=== PATIENT | male | born 1955 | race Caucasian/White ===

== ENCOUNTER 2022-07-21 09:25 | Inpatient (IN) | payer BC, OTHER ==
[2022-07-21] VITALS (11 sets, daily range): BP systolic 91–140; BP diastolic 44–91
[~2022-07-21] VITALS: Ht 165.1 cm; Wt 72.1 kg
[~2022-07-21 09:25] MED LIST: CLON0.1T16 PO; CLON0.5T PO; FOLI1TAB19 PO; LISI2.5T12 PO; OLAN2.5T1 PO; PROM25TA85 PO
--- NOTE | 2022-07-21 09:25 | NUR ---
PT PLACED TO [place] [id number]. RT AT BS. MD AT BS. COMFORT MEASURES AND SUPPORTIVE CARE INITIATED.
--- NOTE | 2022-07-21 09:25 | NUR ---
IV ESTABLISHED. LAB DRAWN. RT AT BS. PT ON BIPAP PER RT SETTINGS.
[2022-07-21] MEDS ORDERED: ALBUTEROL 0.083% 2.5 MG/3 ML NEBU INH ONE ×3 (09:34→12:15)
[2022-07-21] MEDS ORDERED: IPRATROPIUM 0.02% 0.5 MG/2.5 ML NEBU INH ONE ×2 (09:34→09:35)
[2022-07-21] MEDS ORDERED: MAG SULF 2000 MG/WATER PREMIX 50 ML IV ONE (09:35)
[2022-07-21] MEDS ORDERED: methylPREDNISolone SS 125 MG/2 ML VIAL IVP ONE (09:35)
--- NOTE | 2022-07-21 09:40 | NUR ---
PATIENT PLACED ON BIPAP 10/5, RATE 20, +5, 100% FIO2 PER MD MISHRA. ALARMS ARE SET AND AUDIBLE TO ENVIRONMENT, WILL CONTINUE TO MONITOR PATIENT.
[2022-07-21] MEDS ORDERED: PIPERACILLIN/TAZOBACTAM 3.375 GM in DEXTROSE 5% 50 ML IV ONE (09:50)
[2022-07-21] MEDS ORDERED: NACL 0.9% 1,000 ML IV ONE ×2 (09:50→11:20)
[2022-07-21] MEDS ORDERED: PIPERACILLIN/TAZOBACTAM 3.375 GM VIAL IV ONE (09:57)
[2022-07-21] MEDS ORDERED: LORazepam 2 MG/ML VIAL ONE (10:09)
[2022-07-21] MEDS ORDERED: LORazepam 2 MG/ML VIAL IVP ONE ×2 (10:10→23:20)
--- NOTE | 2022-07-21 10:20 | NUR ---
pt c/o anxiety, attempting to remove mask, medicated with ativan ivp per order. family at bedside.
[2022-07-21 10:25] LABS: ALBUMIN 2.3 g/dL (3.4-5.0); ANION GAP 6.6 (8-16); CARBON DIOXIDE 35.2 mmol/L (21-32); CREATININE 0.7 mg/dL (0.6-1.3); POTASSIUM 4.8 mmol/L (3.5-5.1); TOTAL BILIRUBIN 0.5 mg/dL (0.0-1.0)
[2022-07-21 10:28] LABS: BASOPHILS % (AUTO) 0.1 % (0.0-2.0); EOSINOPHILS % (AUTO) 0.1 % (0.0-4.0); HEMATOCRIT 33.1 % (36-52); HEMOGLOBIN 11.2 g/dL (12.0-18.0); LYMPHOCYTES # (AUTO) 0.9 K/uL (2.0-11.5); MEAN CORPUSCULAR HEMOGLOBIN 29 pg (27-31); MEAN CORPUSCULAR HGB CONC 34 g/dL (33-37); MONOCYTES # (AUTO) 2.5 K/uL (0.8-1.0); MONOCYTES % (AUTO) 10.8 % (1.7-9.3); NEUTROPHILS # (AUTO) 19.5 K/uL (1.8-7.7); PLATELET COUNT (AUTO) 551 K/uL (140-450); RED BLOOD CELL COUNT(AUTO) 3.85 MIL/uL (4.20-6.10); RED CELL DISTRIBUTION WIDTH 14.4 % (11.6-13.7); WHITE BLOOD COUNT (AUTO) 22.9 K/uL (4.8-10.8)
--- NOTE | 2022-07-21 10:36 | NUR ---
pt swabbed and sent to lab.
--- NOTE | 2022-07-21 10:40 | NUR ---
UA AT BEDSIDE
[2022-07-21] MEDS ORDERED: HYDROcodone/APAP 7.5/325 MG 1 TAB PO PRN (11:30)
[2022-07-21] MEDS ORDERED: OSELTAMIVIR PHOSPHATE 75 MG CAP PO ONE (11:30)
[2022-07-21] MEDS ORDERED: ZOLPIDEM 5 MG TAB PO PRN (11:30)
[2022-07-21] MEDS ORDERED: ONDANSETRON 4 MG/2 ML VIAL IM/IVP PRN (11:30)
[2022-07-21] MEDS ORDERED: ACETAMINOPHEN 325 MG TAB PO PRN (11:30)
[2022-07-21] MEDS ORDERED: DOCUSATE SODIUM 100 MG GELCAP PO PRN (11:30)
[2022-07-21] MEDS ORDERED: POTASSIUM CHLORIDE 10 MEQ TABER PO PRN (11:30)
[2022-07-21] MEDS ORDERED: guaiFENesin DM 200/20 MG-10 ML 10 ML UDC PO PRN (11:30)
[2022-07-21] MEDS ORDERED: OLANZapine 10 MG VIAL IM ONE (11:35)
[2022-07-21] MEDS ORDERED: ASPI-1822 PO (11:54)
[2022-07-21] MEDS ORDERED: PANT40EC PO (11:54)
[2022-07-21] MEDS ORDERED: CLON0.1T16 PO (11:54)
[2022-07-21] MEDS ORDERED: BUDE1AER IH (11:54)
[2022-07-21] MEDS ORDERED: ATOR40TA PO (11:54)
[2022-07-21] MEDS ORDERED: ATI.5 PO (11:54)
--- NOTE | 2022-07-21 11:56 | NUR ---
PT RESTLESS, REMOVING BIPAP. C/O ANXIETY. DR MISHRA MADE AWARE. MEDICATED PER ORDER
[2022-07-21 12:13] LABS: PHOSPHORUS 4.2 mg/dL (2.5-4.9)
--- NOTE | 2022-07-21 12:30 | NUR ---
PATIENT BIPAP SETTINGS CHANGED TO 14/8 PER MD MISHRA POST ABG RESULTS.
--- NOTE | 2022-07-21 12:31 | NUR ---
FAMILY AT BEDSIDE HAS DECIDED DNR/DNI DR BRIONES MADE AWARE
[2022-07-21] MEDS ORDERED: VANCOMYCIN PER PHARMACY MC PRN (13:20)
--- NOTE | 2022-07-21 13:55 | NUR ---
RECEIVED PT FROM ER IN [facility] [place], PT. ALOC DID NOT FOLLOW COMMAND . SKIN DRY AND WARM TO TOUCH , BOTH ARM IS STIFFED LEFT ARM IS SWELLING RED AND WARM TO TOUCH.IV HEPLOCK ON RT ARM, PT. PLACE ON ICU BED 1.
--- NOTE | 2022-07-21 14:05 | NUR ---
PT IS ON BIPAP 14/8 FIO2 100% RATE 20. O2 SAT98% FAMILY AT BED SIDE
--- NOTE | 2022-07-21 14:08 | NUR ---
Patient will be admitted to care of [facility]. Admited to ICU. Will go to room 1. Belongings list completed. Report to RAYMOND BADILLO.
[2022-07-21] MEDS: VANCOMYCIN 1,000 MG in DEXTROSE 5% 250 ML IV SCH (14:29)
--- NOTE | 2022-07-21 16:00 | NUR ---
PT HAS NO RESPONSE TO ST[place] FAMILY AT BED SIDE.
[2022-07-21] MEDS: NACL 0.9% 500 ML IV SCH (16:25)
[2022-07-21] MEDS ORDERED: MORPHINE SULFATE 50 MG in NACL 0.9% 45 ML IV PRN (16:35)
--- NOTE | 2022-07-21 16:40 | NUR ---
DR BRIONES TALK TO THE FAMILY THEY CHANGE PATIENT CODE STATUS TO DNR WITH COMFORT CARE.
[2022-07-21] MEDS ORDERED: methylPREDNISolone SS 125 MG/2 ML VIAL IVP SCH (16:50)
--- NOTE | 2022-07-21 17:00 | NUR ---
LET THE FAMILY KNOW THAT THE FAMILY CAN COME TO VISIT THE PATIENT.
[2022-07-21] MEDS: ALBUTEROL SULFATE/IPRATROPIU 3 ML SOL IH SCH ×2 (18:57→22:40)
--- NOTE | 2022-07-21 19:30 | NUR ---
REPORT GIVE TO AIDEE FOR CONTINUITY CARE.
--- NOTE | 2022-07-21 19:35 | NUR ---
TRANSFER OF CARE FROM DAY SHIFT, REPORT RECEIVED FROM RAYMOND Batista RN. PATIENT RECIEVED ASLEEP IN BED ON BIPAP WITH THE CURRENT SETTINGS 14/8, FIO2 =- 100%. PATIENT HAS 20G IN THE RIGHT WRIST. PATIENT HAS ALOC AND MUMBLES. PATIENT HAS [place] TO GRAVITY. VITALS AT START OF SHIFT: HR = 106, O2 SAT = 99%, BP 96/52PATIENT IS A DNR AND HAS ORDERS FOR COMFORT CARE; HOWEVER PER REPORT FROM DAY SHIFT; DTR WANTS TO ALLOW MORE FAMILY TO SEE PATIENT PRIOR TO INITIATING MORPHINE DRIP. WILL MAKE ATTEMPTS TO CONTACT DTR TO DETERMINE WHEN SHE WANTS TO START DRIP; WILL CONTINUE TO MONITOR PATIENT AND NOTIFY MD OF ANY ACUTE CHANGES.
[2022-07-21] MEDS ORDERED: MORPHINE SULFATE 10 MG/ML VIAL ONE (20:30)
[2022-07-21] MEDS: OSELTAMIVIR PHOSPHATE 75 MG CAP PO SCH (21:00)
[2022-07-21] MEDS: PIPERACILLIN/TAZOBACTAM 3.375 GM in DEXTROSE 5% 50 ML IV SCH (21:25)
--- NOTE | 2022-07-21 21:45 | NUR ---
PATIENT HAS ORDER FOR MORPHINE DRIP. PER DAY SHIFT, DTR WANTS TO ALLOW OTHER FAMILY MEMBERS TO SEE PATIENT PRIOR TO STARTING DRIP. MESSAGE LEFT FOR PATIENT'S DTR TO CONFIRM IF SHE WANTED TO START COMFORT CARE TONIGHT OR IF SHE WANTED TO WAIT UNTIL TOMORROW ZACH,
--- NOTE | 2022-07-21 22:55 | NUR ---
CALLED TO BEDSIDE DUE TO PATIENT TRYING TO TAKE OFF BIPAP MASK. PATIENT SAID HE DID NOT WANT IT ON. TRIALED PATIENT ON HFNC 40L 100%. PATIENT IMMEDIATELY DESATED TO 70S. ADDED NRB MASK TO HFNC WITH NO CHANGE. PATIENT WILL NEED TO REMAIN ON BIPAP IN ORDER PROPERLY OXYGENATE AT THIS TIME. WILL CONTINUE TO MONITOR.
--- NOTE | 2022-07-21 23:01 | NUR ---
MESSAGE SENT TO (LUCRECIA BRIONES MD) REQUESTING ATIVAN DUE TO RESTLESSNESS
--- NOTE | 2022-07-21 23:16 | NUR ---
RECEIVED PHONE CALL FROM DR. BRIONES, PROVIDED PATIENT UPDATE. MD WITH VERBAL ORDER FOR HALDOL 1MG. PATIENT WITH DOCUMENTED ALLERGY TO REQUESTED MEDICATION. NEW ORDER FOR ATIVAN 1MG X1 NOW.
[2022-07-22] VITALS (10 sets, daily range): BP systolic 60–110; BP diastolic 38–63
[2022-07-22] MEDS: VANCOMYCIN 1,000 MG in DEXTROSE 5% 250 ML IV SCH (02:00)
[2022-07-22] MEDS: NACL 0.9% 500 ML IV SCH ×2 (02:25→12:25)
[2022-07-22] MEDS: ALBUTEROL SULFATE/IPRATROPIU 3 ML SOL IH SCH ×4 (03:33→15:36)
[2022-07-22] MEDS ORDERED: LORazepam 2 MG/ML VIAL ONE (03:55)
[2022-07-22] MEDS: PIPERACILLIN/TAZOBACTAM 3.375 GM in DEXTROSE 5% 50 ML IV SCH ×2 (04:03→13:00)
--- NOTE | 2022-07-22 05:35 | NUR ---
PATIENT NOTED WITH BP = 55/38, HR = 76, O2 SAT = 77%, R = 26. PHONE CALL PLACED TO RT TO COME AND ATTEMPT ADJUSTMENT OF BIPAP SETTINGS PHONE CALL PLACED TO PATIENT'S DTR ZACH; DTR CONFIRMED THAT FAMILY HAD PLANS TO START MORPHINE DRIP TODAY (07/22/2022). INFORMED DTR THAT PATIENT'S BP HAS DROPPED TO THE 55/38 AND PATIENT IS UNABLE TO KEEP O2 SAT ABOVE 90%. DTR STATES THAT SHE IS ON HER WAY TO THE HOSPITAL
--- NOTE | 2022-07-22 06:10 | NUR ---
FAMILY AT BEDSIDE, PROVIDED PATIENT'S AND MOTHER WITH GOWN AND GLOVES. INSTRUCTED FAMILY TO WASH HANDS UPON LEAVING PATIENT ROOM
--- NOTE | 2022-07-22 06:13 | NUR ---
CALLED TO BEDSIDE. PATIENT WAS SATING AT 77%. ADJUSTED PATIENTS MASK AND WAS ABLE TO COME BACK UP TO 87%. PATIENT SETTINGS ARE RATE 14, 18/8 100% FIO2. PATIENT FAMILY AT BEDSIDE. WILL CONTINUE TO MONITOR.
[2022-07-22 06:20] LABS: HEMATOCRIT 31.3 % (36-52); HEMOGLOBIN 10.5 g/dL (12.0-18.0); MEAN CORPUSCULAR HEMOGLOBIN 29 pg (27-31); MEAN CORPUSCULAR HGB CONC 34 g/dL (33-37); MEAN CORPUSCULAR VOLUME 87.5 fL (80-94); PLATELET COUNT (AUTO) 491 K/uL (140-450); RED BLOOD CELL COUNT(AUTO) 3.57 MIL/uL (4.20-6.10); RED CELL DISTRIBUTION WIDTH 14.6 % (11.6-13.7)
[2022-07-22 06:29] LABS: ANION GAP 6.2 (8-16); CARBON DIOXIDE 35.5 mmol/L (21-32); CREATININE 1.1 mg/dL (0.6-1.3); POTASSIUM 5.7 mmol/L (3.5-5.1)
--- NOTE | 2022-07-22 07:21 | NUR ---
TRANSFER OF CARE TO DAY SHIFT, REPORT ENDORSED TO ABY ANDRADE
[2022-07-22 07:33] LABS: BASOPHILS % (MANUAL) 0 % (0-2); EOSINOPHILS % (MANUAL) 0 % (0-4); LYMPHOCYTES % (MANUAL) 5 % (20-46); MONOCYTES % (MANUAL) 14 % (5-12)
--- NOTE | 2022-07-22 08:05 | NUR ---
RECEIVE ENDORSEMENT FROM PM SHIFT RN WHILE PATIENT'S FAMILY WAS WITH PATIENT. PATIENT CURRENT IS ON BI-PAP BUT OXYGEN SATURATION STILL 80S%. PATIENT IS ACTIVE DECLINE AND FAMILY AWARE. WILL CONTINUE TO MONITOR
[2022-07-22] MEDS: OSELTAMIVIR PHOSPHATE 75 MG CAP PO SCH (09:00)
[2022-07-22] MEDS ORDERED: PANTOPRAZOLE 40 MG TABEC PO SCH (09:00)
--- NOTE | 2022-07-22 11:00 | NUR ---
FROM [facility] AND VISITED PATIENT PER REQUEST.
--- NOTE | 2022-07-22 14:17 | NUR ---
@1415 MORPHINE DRIP START PER PCP ORDER WHILE DAUGHTER AND ANOTHER FAMILY MEMBER MEMBER PRESENT WHEN PATIENT'S PULES WAS 99, BP: 76/50. OXYGEN SATURATION 93% Addendum: 07/22/22 at 1524 by Tanja Alvarez RN @1445 30 MINUTES AFTER START MORPHINE DRIP, PATIENT'S HEART RATE WAS 99, BP:76/50, RESPIRATORY RATE 34, OXYGEN SATURATION 955, MORPHINE DRIP RATE INCREASE 2ML/HR TO 4ML/HR. WILL FOLLOW UP Addendum: 07/22/22 at 1545 by Tanja Alvarez RN ABOUT ANOTHER 30 MINUTES AFTER INCREASING MORPHINE DRIP RATE TO 4ML/HR, PATIENT 'S PULES 96, RESPIRATION RATE 34, BP: 67/44; OXYGEN SATURATION 84%, MORPHINE DRIP RATE INCREASE TO 6ML/HR. WILL CONTINUE TO MONITOR PATIENT. Addendum: 07/22/22 at 1640 by Tanja Alvarez RN @1630 INCREASE MORPHINE DRIP RATE TO 8ML/HR PER PROTOCOL WHILE PATIENT'S PULSE 96, BP: 64/38, OXYGENT SATURATION 76%, RESPIRATION RATE 34 WITH BI-PAP. WILL CONTINUE TO MONITOR
[2022-07-22] MEDS ORDERED: MORPHINE SULFATE 10 MG/ML VIAL ONE (17:26)
--- NOTE | 2022-07-22 17:54 | NUR ---
hr 36/h resp 27. call family wifeMATILDE [phone] AND DAUGHTER ZACH [phone] CALLED INFORM ABOUT PT. CONDITION.
--- NOTE | 2022-07-22 18:00 | NUR ---
MONITOR SHOW STRAIGHT LINE BP52/34 RESP.[id number] [place] SUPP AND INFORMED.
--- NOTE | 2022-07-22 18:04 | NUR ---
HOUSE SUPP CAME EXAM PT. AND PRONOUNS PT. .FAMILIES AT BEDSIDE.
--- NOTE | 2022-07-22 18:10 | NUR ---
[facility] CALLED TO NOTIFIED. Addendum: 07/22/22 at 1854 by Tanja Alvarez RN AT 1815, JOSE FOR [facility] ( ) INFORM THAT PATIENT IS WOULD NOT BE CANDIDATE FOR TISSUE/ORGAN HARVEST AND REFERENCE #[id number]. [facility] IS OKAY TO "GO AHEAD RELEASE BODY." AROUND 1840, [place] [facility] OFFICER (([phone]), SELMA SR, CALL BACK AND RELEASE BODY AFTER BRIEF INVESTIGATION BASED ON NURSE'S REPORT. PATIENT'S IS NOT EAP CLINICIAN'S CASE
--- NOTE | 2022-07-22 18:10 | NUR ---
supervisor volunteer services called by ICU nurse to come to bedside to pronounce the patient. Heart rate and respirations absent, patient pronounced at 1804.
--- NOTE | 2022-07-22 23:30 | NUR ---
BODY TAKEN BY [facility].
== END 2022-07-22 18:04 | DRG 871 ==
LOC: MED 09:25 → MIC 11:31
PROVIDERS: ADMIT Student in an Organized Health Care Education/Training Program; ATTEND Student in an Organized Health Care Education/Training Program
PROC: 5A09457 Assistance with Respiratory Ventilation, 24-96 Consecutive Hours, Continuous Positive Airway Pressure (ICD-10-PCS; principal; 2022-07-21)
DX: A41.9 Sepsis, unspecified organism (principal); E43 Unspecified severe protein-calorie malnutrition; G93.41 Metabolic encephalopathy; J96.02 Acute respiratory failure with hypercapnia; N17.0 Acute kidney failure with tubular necrosis; J11.00 Influenza due to unidentified influenza virus with unspecified type of pneumonia; J96.01 Acute respiratory failure with hypoxia; J18.9 Pneumonia, unspecified organism; E87.1 Hypo-osmolality and hyponatremia; J44.0 Chronic obstructive pulmonary disease with (acute) lower respiratory infection; J44.1 Chronic obstructive pulmonary disease with (acute) exacerbation; E78.5 Hyperlipidemia, unspecified; I10 Essential (primary) hypertension; Z20.822 Contact with and (suspected) exposure to COVID-19; I46.9 Cardiac arrest, cause unspecified; E87.8 Other disorders of electrolyte and fluid balance, not elsewhere classified; Z66 Do not resuscitate; R65.20 Severe sepsis without septic shock; E87.5 Hyperkalemia; D72.825 Bandemia; Z88.8 Allergy status to other drugs, medicaments and biological substances; Z79.899 Other long term (current) drug therapy; Z68.26 Body mass index [BMI] 26.0-26.9, adult; Z79.82 Long term (current) use of aspirin
CPT/HCPCS: 36415; 36600; 71045; 80048; 80053; 82550; 82803; 83605; 83735; 83880; 84100; 84484; 85025; 87040; 87081; 93971; 94640; 94660; 96365; 96366; 99291; J1644; J2060; J2270; J2543; J2930; J3370; J3475; J3490; J7060; J7613; J7644; Q0092